=== PATIENT | male | born 1980 | race Caucasian/White ===

== ENCOUNTER 2022-03-05 06:59 | Outpatient (CLI) | payer SELFPAY ==
--- NOTE | 2022-03-05 07:00 | XR_ITS ---
WS: [id number] XR KUB [id number] REASON FOR EXAM: Stones FINDINGS: The calculus identified in the right ureter overlying the right sacral wing (previous CT scan 2) is not identifiable on this examination. This may be due to overlapping bone. The calculus is not identified overlying the pelvis. No intrarenal calculi are identified. XR/XR KUB [id number] IMPRESSION: Previously demonstrated right ureteral calculus not identifiable. No other urin jaylan tract calculi identified.
== END 2022-03-05 07:00 | disposition home or self-care (01) ==
LOC: RAD 07:01
PROVIDERS: Visit Provider Urology
DX: N20.1 Calculus of ureter (principal)
CPT/HCPCS: 74018; 81003

== ENCOUNTER 2022-03-12 11:57 | Outpatient (CLI) | payer SELFPAY ==
--- NOTE | 2022-03-12 12:04 | XR_ITS ---
WS: [id number] Exam: XR KUB [id number] Date/Time of Exam: 03/12/2022 12:15 PM Reason For Exam: STONES No bowel obstruction or free air. No sign of organ enlargement. Moderate amount of stool in the trans verse colon. Bony structures are intact. XR/XR KUB [id number] IMPRESSION: 1. No acute abdominal finding.
== END 2022-03-12 11:58 | disposition home or self-care (01) ==
LOC: RAD 11:59
PROVIDERS: Visit Provider Urology
DX: N20.1 Calculus of ureter (principal)
CPT/HCPCS: 74018; 81003

== ENCOUNTER 2022-03-28 14:36 | Outpatient (CLI) | payer SELFPAY ==
--- NOTE | 2022-03-28 14:46 | XR_ITS ---
WS: [id number] Exam: XR KUB [id number] Date/Time of Exam: 03/28/2022 2:46 PM Reason For Exam: N20.1 - Calculus of ureter No bowel obstruction or free air. Organ margins appear normal. Bony structures are unremarkable. XR/XR KUB [id number] IMPRESSION: 1. Negative KUB.
== END 2022-03-28 14:37 | disposition home or self-care (01) ==
LOC: RAD 14:37
PROVIDERS: Visit Provider Urology
DX: N20.1 Calculus of ureter (principal)
CPT/HCPCS: 74018; 81003

== ENCOUNTER 2023-02-19 17:22 | Emergency (ER) | payer SELFPAY ==
[2023-02-19 17:30] VITALS: BP 132/79; PULSE 91; RESP 15; TEMP 37.1; O2SAT 97; BMI 27.8
--- NOTE | 2023-02-19 18:23 | W.ED.EAR ---
HPI - Ear Problem General: Chief complaint: Ear Stated complaint: ear pain, both ears Time Seen by Provider: 02/19/23 18:17 History of Present Illness: 42-year-old male patient comes in with right ear pain for the last 3 to 4 days. Patient states that he also has some pain in his left but most of it is on the right side. Patient appears nontoxic. Patient appears in moderate pain. Patient takes no routine medications. Patient reports no chronic medical problems. Associated symptoms: Reports ear or mastoid pain; Denies fever(s) or neck pain Review of Systems Const: Denies: fever(s) Eyes: Denies: eye discomfort ENMT: Reports: ear or mastoid pain; Denies: throat pain or nasal discharge Card: Denies: chest pain Resp: Denies: dyspnea or non-productive cough GI: Denies: nausea, vomiting, diarrhea or constipation Musc: Denies: neck pain Skin/Breast: Denies: rash PFSH ED PFSH: Family History Mother Diabetes Stroke Hypertension Father No problems noted. Social History Smoking and tobacco status: current every day smoker smokeless tobacco Alcohol intake: current Alcohol intake frequency: few times a month Marital status: Current occupational status: employed Current occupation: self employed Physical Exam Const: COMMON NORMALS: alert HENMT: EXTERNAL AUDITORY CANAL: Abnormal EAC present EAC laterality: right Details: erythema and edema TYMPANIC MEMBRANE: TM abnormal TM laterality: right Details: bulging and erythematous MOUTH: Abnormal oral and palatal mucosa present TEETH & GINGIVA: Yes fair dentition THROAT: posterior oropharynx normal Neck/C-Spine: COMMON NORMALS: full ROM Resp: COMMON NORMALS: normal respiratory effort Cardio: COMMON NORMALS: regular rate RATE: regular rate Back/Pelvis: COMMON NORMALS: thoracic and lumbar spine normal to inspection Extremity: COMMON NORMALS: normal to inspection Neuro: SENSORIUM/ORIENTATION: Yes alert Skin: COMMON NORMALS: turgor normal GENERAL SKIN EXAM: turgor normal Course Vital Signs: Vital signs: Vital Signs Temperature 98.8 F 02/19/23 17:30 Pulse Rate 65 02/19/23 18:24 Respiratory Rate 15 02/19/23 17:30 Blood Pressure 121/88 02/19/23 18:24 Pulse Oximetry 95 02/19/23 18:24 Oxygen Delivery Me thod Room Air 02/19/23 18:24 MDM - Ear Medical Decision Making 42-year-old male patient comes in with right ear pain. On exam patient has mild swelling and redness to the right ear canal with bulging and erythematous TM. Posterior pharynx is normal. Patient has fair dentition. Skin is warm and dry. Lungs are clear to auscultation. Differential diagnosis includes not limited to otitis externa, otitis media, eustachian tube dysfunction, dental abscess, trans mandibular joint dysfunction. Patient appears to have a mild otitis media without any signs of other infection or illness. We will treat patient with antibiotics and steroids due to the severity of his pain. Patient was also given 7 tablets of hydrocodone to use for severe pain. Encourage plenty of fluids and follow-up with primary care. Discharge Plan Discharge Patient Disposition: Home Clinical Impression: Otitis media Qualifiers: Otitis media type: suppurative Chronicity: acute Laterality: right Recurrence: not specified as recurrent Spontaneous tympanic membrane rupture: without spontaneous rupture Qualified Code(s): H66.001 - Acute suppurative otitis media without spontaneous rupture of ear drum, right ear Condition: Stable Prescriptions: New clindamycin HCl 150 mg capsule 150 mg PO Q8H 7 Days Qty: 21 0RF hydrocodone-acetaminophen 5-325 mg tablet 1 tab PO Q6H PRN (Reason: pain (scale score 7-10)) Qty: 7 0RF prednisone 20 mg tablet 20 mg PO BID 5 Days Qty: 10 0RF Discontinued ondansetron HCl 4 mg tablet 4 mg PO Q8H oxycodone-acetaminophen 5-325 mg tablet 1 tab PO Q8H PRN tamsulosin 0.4 mg capsule 0.4 mg PO DAILY Qty: 30 0RF Discharge Orders: Discharge ED (Routine); Ordered 02/19/23 Ordered By: Nolan Stock Discharge Diet: Usual diet Discharge Activity: Increase activity as tolerated Patient Instructions: Earache (ED), Opioid Safety Activity Restrictions/Additional Instructions: Drink plenty of water and fluids. Take antibiotics as directed. Use steroid twice a day for the next 5 days for pain and inflammation. Use hydrocodone for severe pain. Use acetaminophen and/or ibuprofen for further pain relief. Follow-up with primary care in 1 week for recheck. Return to ED for new concerns. Coding Level of Care Code ED [employer]al [employer] for Luis Eduardo Daigle
[2023-02-19 18:24] VITALS: BP 121/88; PULSE 65; O2SAT 95
[2023-02-19] MEDS: dexamethasone 10 mg/mL INJ IM (19:02)
[2023-02-19] MEDS: clindamycin 150 mg Capsule 450 MG PO (19:03)
[2023-02-19] MEDS: HYDROcodone-acetaminophen 10-325 mg Tablet 1 TAB PO (19:03)
[2023-02-19 19:06] VITALS: BP 110/73; PULSE 87; O2SAT 92
== END 2023-02-19 19:30 | disposition home or self-care (01) ==
PROVIDERS: Emergency Provider Nurse Practitioner Family
DX: H66.001 Acute suppurative otitis media without spontaneous rupture of ear drum, right ear (principal); F17.200 Nicotine dependence, unspecified, uncomplicated
CPT/HCPCS: 96372; 99284; J1100

== ENCOUNTER 2023-07-02 06:00 | Outpatient (RCR) | payer SELFPAY | END 2023-07-27 23:59 | disposition home or self-care (01) | LOC: MOT 06:00 | PROVIDERS: Visit Provider Orthopaedic Surgery Hand Surgery | DX: Z47.89 Encounter for other orthopedic aftercare (principal); M79.642 Pain in left hand | CPT/HCPCS: 97018; 97110; 97140; 97166 ==

== ENCOUNTER 2023-07-28 06:00 | Outpatient (RCR) | payer SELFPAY | END 2023-08-27 23:59 | disposition home or self-care (01) | LOC: MOT 06:00 | PROVIDERS: Visit Provider Orthopaedic Surgery Hand Surgery | DX: Z47.89 Encounter for other orthopedic aftercare (principal) | CPT/HCPCS: 97035; 97110; 97140; 97760 ==